=== PATIENT | female | born 1965 | race Caucasian/White ===

== ENCOUNTER → 2017-02-11 | Outpatient (CLI) | payer OTHER ==
[2017-02-11 17:57] LABS: Basophils # (A) 0.1 k/uL (0-0.2); Basophils % (A) 1 %; CH 32.1; CHCM 32.4; Eosinophils # (A) 0.2 k/uL (0-0.7); Eosinophils % (A) 3 %; HCT 40.6 % (34.0-46.0); HDW 2.26; HGB 13.3 gm/dL (11.4-16.0); Luc # (Auto) 0.12; Luc % (Auto) 2; Lymphocytes # (A) 1.8 k/uL (1.0-4.8); Lymphocytes % (A) 28 %; MCH 32.5 pg (25.0-35.0); MCHC 32.6 g/dL (31.0-37.0); MCV 99.5 fL (80.0-100.0); Mean Platelet Volume 9.5; Monocytes # (A) 0.4 k/uL (0-1.0); Monocytes % (A) 6 %; Neutrophils % (A) 61 %; RBC 4.08 m/uL (3.80-5.40); RDW 13.5 % (11.5-15.5); WBC 6.6 k/uL (3.8-10.6); WBC (Perox) 6.51
== END | disposition home or self-care (01) ==
LOC: LABPAT 17:17
PROVIDERS: ATTEND Obstetrics & Gynecology
DX: Z01.818 Encounter for other preprocedural examination (principal)
CPT/HCPCS: 85025

== ENCOUNTER 2017-02-16 10:59 | Day surgery (SDC) | payer OTHER ==
[2017-02-12 10:03] VITALS: BMI 21.9
[~2017-02-16 10:59] MED LIST: DEXAMETHASONE SOD PHOSPHATE 10 MG/ML 1 ML VIAL IV ONE; HYDROmorphone 1 MG/ML 1 ML SYRINGE IVP PRN; LACTATED RINGERS 1,000 ML IV SCH; MIDAZOLAM 2 MG/2 ML VIAL IV PRN; ONDANSETRON 4 MG/2 ML VIAL IVP ONE; Pre Op ABX Message 1 EACH MISC MISCELLANE ONE
--- NOTE | 2017-02-16 11:23 | P.HPOB ---
History of Present Illness H&P Date: 02/16/17 Chief Complaint: vaginal bleeding 51 year old presents for D&C hysteroscopy and endometrial ablation with NovaSure. She has been having intermittent heavy cycles and most recently has been constantly bleeding for the last month. Review of Systems All systems: negative Constitutional: Denies chills, Denies fever Eyes: denies blurred vision, denies pain Ears, nose, mouth and throat: Denies headache, Denies sore throat Cardiovascular: Denies chest pain, Denies shortness of breath Respiratory: Denies cough Gastrointestinal: Denies abdominal pain, Denies diarrhea, Denies nausea, Denies vomiting Genitourinary: Denies dysuria, Denies hematuria Musculoskeletal: Denies myalgias Integumentary: Denies pruritus, Denies rash Neurological: Denies numbness, Denies weakness Psychiatric: Denies anxiety, Denies depression Endocrine: Denies fatigue, Denies weight change Past Medical History Past Medical History: Mitral Valve Prolapse (MVP) Additional Past Medical History / Comment(s): irregular periods, hx of htn, no longer on medication. states watching mitral valve prolapse History of Any Multi-Drug Resistant Organisms: None Reported Past Surgical History: Cholecystectomy Additional Past Surgical History / Comment(s): bilateral laser eye surgery for glaucoma Past Anesthesia/Blood Transfusion Reactions: Motion Sickness Additional Past Anesthesia/Blood Transfusion Reaction / Comment(s): scopolamine patch on more than 24 hrs, and eyes became dilated Past Psychological History: No Psychological Hx Reported Smoking Status: Never smoker Past Alcohol Use History: None Reported Past Drug Use History: None Reported - Past Family History Mother Family Medical History: Deep Vein Thrombosis (DVT) Medications and Allergies Home Medications Medication Instructions Recorded Confirmed Type Ibuprofen [Motrin] 200 - 400 mg PO Q6H PRN 07/28/16 02/16/17 History Tumeric 1 tab PO DAILY 07/28/16 02/16/17 History Medroxyprogesterone Acetate 20 mg PO QAM 02/12/17 02/16/17 History [Provera] Allergies Allergy/AdvReac Type Severity Reaction Status Date / Time No Known Allergies Allergy Verified 02/12/17 09:56 Exam Osteopathic Statement: *. No significant issues noted on an osteopathic structural exam other than those noted in the History and Physical/Consult. - Vital Signs Vital signs: Vital Signs Temp Pulse Resp BP Pulse Ox 02/16/17 11:18 97.6 F 91 16 143/92 100 Heart: RRR Lungs: CTAB Abdomen: sfot, nontender Extremeties: neg billie's Assessment and Plan (1) Menorrhagia Status: Acute Plan: 1. D&C hysteroscopy and endometrial ablation with NovaSure.
[2017-02-16] MEDS ORDERED: MIDAZOLAM 2 MG/2 ML VIAL ONE (12:02)
[2017-02-16] MEDS ORDERED: LIDOCAINE 1% INJ 10MG/ML (20 ML MDV) ONE (12:02)
[2017-02-16] MEDS ORDERED: KETOROLAC 30 MG/ML 1 ML VIAL ONE (12:02)
[2017-02-16] MEDS ORDERED: PROPOFOL 10 MG/ML 20 ML VIAL IV ONE (12:02)
[2017-02-16] MEDS ORDERED: fentaNYL (PF) 50 MCG/ML 2 ML AMP ONE (12:02)
--- NOTE | 2017-02-16 12:30 | P.OP ---
Date of Procedure: 02/16/17 Preoperative Diagnosis: 1. Menorrhagia Postoperative Diagnosis: 1. Menorrhagia Procedure(s) Performed: D&C hysteroscopy, endometrial ablation with NovaSure Anesthesia: MAC Surgeon: Yessica Bull Estimated Blood Loss (ml): 10 IV fluids (ml): 150 Urine output (ml): 150 Pathology: other (Endometrial curettings) Condition: stable Disposition: PACU Operative Findings: Large amount of endometrial curettings uterine length 6.5 cm, width 5.1 cm power 180 W, time of ablation 62 seconds. Adequate ablation noted after the NovaSure Description of Procedure: Patient is taken the operating room where general anesthesia was obtained without difficulty. She was prepped and draped in normal sterile fashion dorsal lithotomy position, legs placed in the candy cane stirrups. Bladder was drained of all urine. Weighted speculum placed in the vagina and the anterior lip the cervix was grasped with serial tooth tenaculum. The uterus sounded to 11 cm and the cervix under 3.5 cm making the cavity length 7.5 cm. The cervix was dilated to #8 Hegar dilator. Hysteroscopy was then performed. Both ostia were visualized and there was a smooth contour of the uterus. Sharp curet was then gently used to obtain endometrial curettings. The NovaSure was introduced into the uterus with a cavity length of 6.5 cm, width 5.1 cm. after cavity assessment was passed, the time of ablation was 62 seconds at 180 W. Hysteroscopy was again performed and adequate ablation was noted. All instruments removed from the vagina. Patient tolerated the procedure well, sponge and instrument counts were correct 2 and she was taken to recovery in stable condition.
[2017-02-16 12:46] VITALS: TEMP 97.1
[2017-02-16 13:27] VITALS: BP 138/85; PULSE 84; RESP 18
[2017-02-16] MEDS ORDERED: ACETAMINOPHEN TAB 500 MG TAB PO ONE ×2 (13:30)
== END 2017-02-16 14:10 | disposition home or self-care (01) ==
LOC: OR 10:59
PROVIDERS: ATTEND Obstetrics & Gynecology
DX: N92.1 Excessive and frequent menstruation with irregular cycle (principal); I34.1 Nonrheumatic mitral (valve) prolapse; Z79.1 Long term (current) use of non-steroidal anti-inflammatories (NSAID); Z79.899 Other long term (current) drug therapy
CPT/HCPCS: 81025; 88305; 84132; 58563; J2250; J1100; J2405; J2001; J3010; J1885; J2704

== ENCOUNTER → 2017-04-26 | Outpatient (CLI) | payer OTHER ==
--- NOTE | 2017-04-27 13:13 | MM ---
Reason for exam: screening (asymptomatic). Last mammogram was performed 2 years ago. Physical Findings: A clinical breast exam by your physician is recommended on an annual basis and results should be correlated with mammographic findings. MG Screening Mammo w CAD Bilateral CC and MLO view(s) were taken. Prior study comparison: April 23, 2015, bilateral MG screening mammo w CAD. March 14, 2013, bilateral digital screening mammo w/CAD. There are scattered fibroglandular densities. Benign calcifications. There is no discrete abnormality. No significant changes when compared with prior studies. ASSESSMENT: Benign, BI-RAD 2 RECOMMENDATION: Routine screening mammogram of both breasts in 1 year.
== END ==
LOC: RADMAMWWP 10:06
PROVIDERS: ATTEND Obstetrics & Gynecology
DX: Z12.31 Encounter for screening mammogram for malignant neoplasm of breast (principal)

== ENCOUNTER → 2018-05-12 | Outpatient (CLI) | payer OTHER ==
--- NOTE | 2018-05-13 11:24 | MM ---
Reason for exam: screening (asymptomatic). Last mammogram was performed 1 year and 1 month ago. Physical Findings: A clinical breast exam by your physician is recommended on an annual basis and results should be correlated with mammographic findings. MG Screening Mammo w CAD Bilateral CC and MLO view(s) were taken. Prior study comparison: April 26, 2017, bilateral MG screening mammo w CAD. April 23, 2015, bilateral MG screening mammo w CAD. The breast tissue is extremely dense which could obscure a lesion on mammography. No suspicious abnormality. ASSESSMENT: Negative, BI-RAD 1 RECOMMENDATION: Routine screening mammogram of both breasts in 1 year.
== END | disposition home or self-care (01) ==
LOC: RADMAMWWP 12:49
PROVIDERS: ATTEND Obstetrics & Gynecology
DX: Z12.31 Encounter for screening mammogram for malignant neoplasm of breast (principal)
CPT/HCPCS: 77067

== ENCOUNTER → 2019-08-17 | Outpatient (CLI) | payer OTHER ==
--- NOTE | 2019-08-18 10:03 | BD ---
EXAMINATION TYPE: Axial Bone Density DATE OF EXAM: 08/17/2019 COMPARISON: NONE CLINICAL HISTORY: 53 YR OLD FEMALE....ICD-10 CODE: N95.1 POST MENOPAUSAL Height: 64.5 Weight: 143 FRAX RISK QUESTIONS: Family History (Parent hip fracture): YES, AUNT RISK FACTORS HISTORY OF: Family History of Osteoporosis: YES, HER AUNT WITH FXs Active: YES Diet low in dairy products/other sources of calcium: MAYBE A BIT LOW, NO GB Postmenopausal woman: YES, AT AGE 52 Hyperparathyroidism: YES Adrenal Insufficiency: NO MEDICATIONS: Additional Medications: NOTHING AT THIS POINT Additional History: NOTHING ADDITIONAL TO ADD EXAM MEASUREMENTS: Bone mineral densitometry was performed using the [employer] System. Bone mineral density as measured about the Lumbar spine is: ----- L1-L4(G/cm2): 1.432 T Score Values are as follows: ----- L1: 1.5 ----- L2: 1.3 ----- L3: 2.4 ----- L4: 2.9 ----- L1-L4: 2.1 Bone mineral density ........FIRST DEXA SCAN....BASELINE STUDY Bone mineral density about the R hip (g/cm2): 1.074 Bone mineral density about the L hip (g/cm2): 1.041 T Score values are as follows: -----R Neck: -0.2 -----L Neck: -0.3 -----R Total: 0.5 -----L Total: 0.3 Bone mineral density BASELINE STUDY FRAX%s: THERE IS A 4.8% CHANCE FOR A MAJOR OSTEOPOROTIC FX AND A 0.1% FOR HIP.....PROBABILITY FOR FX IN 10 YRS TIME IMPRESSION: Normal (Values between +1 and -1 indicate normal bone mass). Consider repeating this study in 5 year s or sooner if there is some new clinical indication. NOTE: T-SCORE=SD OF THE YOUNG ADULT MEAN.
--- NOTE | 2019-08-21 10:44 | MM ---
Reason for exam: screening (asymptomatic). Last mammogram was performed 1 year and 3 months ago. History: Patient is postmenopausal. Physical Findings: A clinical breast exam by your physician is recommended on an annual basis and results should be correlated with mammographic findings. MG Screening Mammo w CAD Bilateral CC and MLO view(s) were taken. Prior study comparison: May 12, 2018, bilateral MG screening mammo w CAD. April 26, 2017, bilateral MG screening mammo w CAD. The breast tissue is heterogeneously dense. This may lower the sensitivity of mammography. No significant changes when compared with prior studies. ASSESSMENT: Negative, BI-RAD 1 RECOMMENDATION: Routine screening mammogram of both breasts in 1 year.
== END | disposition home or self-care (01) ==
LOC: RADMAMWWP 15:21
PROVIDERS: ATTEND Obstetrics & Gynecology
DX: Z12.31 Encounter for screening mammogram for malignant neoplasm of breast (principal); N95.1 Menopausal and female climacteric states
CPT/HCPCS: 77067; 77080

== ENCOUNTER → 2020-03-18 | Outpatient (CLI) | payer OTHER ==
--- NOTE | 2020-03-18 11:37 | XR ---
EXAMINATION TYPE: XR knee complete RT DATE OF EXAM: 03/18/2020 CLINICAL HISTORY: Right knee pain, nontraumatic TECHNIQUE: Three views of the right knee are obtained. COMPARISON: None. FINDINGS: There is no acute fracture/dislocation evident in right knee. The tri-compartment joint s paces appear aligned with very minimal medial compartment joint space narrowing and very small superi or patellar pole osteophyte. The overlying soft tissue appears unremarkable. IMPRESSION: There is no acute fracture or dislocation in the right knee. Minimal bicompartmental art hropathy.
== END | disposition home or self-care (01) ==
LOC: RADXRMAIN 11:11
PROVIDERS: ATTEND Family Medicine
DX: M12.861 Other specific arthropathies, not elsewhere classified, right knee (principal); M21.161 Varus deformity, not elsewhere classified, right knee

== ENCOUNTER → 2021-07-04 | Outpatient (CLI) | payer OTHER ==
--- NOTE | 2021-07-04 13:15 | MR ---
EXAMINATION TYPE: MR knee RT wo con DATE OF EXAM: 07/04/2021 COMPARISON: None HISTORY: Right knee effusion, pain x 1 year. TECHNIQUE: Multiplanar, multisequence imaging of the right knee is performed without IV contrast. FINDINGS: MEDIAL MENISCUS: Anterior and posterior horns are intact without tear. LATERAL MENISCUS: Anterior and posterior horns are intact without tear. CRUCIATE LIGAMENTS: The anterior and posterior cruciate ligaments are intact and unremarkable. COLLATERAL LIGAMENTS: The medial collateral ligament and lateral collateral ligament complex are inta ct and unremarkable. EXTENSOR MECHANISM: Visualized quadriceps and patellar tendons are intact. EFFUSION: No significant suprapatellar joint effusion. POPLITEAL CYST: No popliteal/bassett cyst. TRICOMPARTMENT SPACES: Mild narrowing medial tibiofemoral joint space and patellofemoral joint space. CARTILAGE: Intact BONE MARROW SIGNAL: No focal abnormal marrow signal is appreciated. OTHER: Extra-articular multi septate cystic structure noted adjacent to the iliotibial band measurin g approximately 3.6 x 2.5 cm with posterior extension and additional component measuring 2.4 x 1.3 cm . IMPRESSION: Extra-articular multi septate cystic structure noted adjacent to the iliotibial band measuring approx imately 3.6 x 2.5 cm with posterior extension and additional component measuring 2.4 x 1.3 cm.
== END | disposition home or self-care (01) ==
LOC: RADMRIMAIN 12:00
PROVIDERS: ATTEND Orthopaedic Surgery Sports Medicine
DX: M85.661 Other cyst of bone, right lower leg (principal)

== ENCOUNTER → 2021-11-28 | Outpatient (CLI) | payer OTHER ==
[2021-11-28 11:19] LABS: ALT 21 U/L (8-44); AST 20 U/L (13-35); Chol/HDL Ratio 3.69 Ratio; LDL Cholesterol,Calculated 78.8 mg/dL (0.0-131.0)
== END | disposition home or self-care (01) ==
LOC: LABWHC1 08:16
PROVIDERS: ATTEND Internal Medicine Interventional Cardiology
DX: E78.2 Mixed hyperlipidemia (principal)
CPT/HCPCS: 36415; 80061; 84450; 84460

== ENCOUNTER → 2023-06-18 | Outpatient (CLI) | payer OTHER ==
--- NOTE | 2023-06-21 07:47 | MM ---
Reason for Exam: Screening (asymptomatic). Last mammogram was performed 3 year(s) and 10 month(s) ago. Patient History: Menarche at age 13. First Full-Term at age 22. Postmenopausal. Risk Values: Elda 5 year model risk: 1.1%. NCI Lifetime model risk: 7.1%. Prior Study Comparison: 04/26/2017 Bilateral Screening Mammogram, [facility]. 05/12/2018 Bilateral Screening Mammogram, [facility]. 08/17/2019 Bilateral Screening Mammogram, [facility]. Tissue Density: The breast tissue is heterogeneously dense. This may lower the sensitivity of mammography. Findings: Analyzed By CAD. There is no suspicious group of microcalcifications or new suspicious mass in either breast. Overall Assessment: Benign, BI-RAD 2 Management: Screening Mammogram of both breasts in 1 year. . Patient should continue monthly self-breast exams. A clinical breast exam by your physician is recommended on an annual basis. This exam should not preclude additional follow-up of suspicious palpable abnormalities. Note on Elda scores and lifetime risk: 1. A Elda score greater than 3% is considered moderate risk. If this is the case, consider specialist referral to assess eligibility for a risk reducing agent. 2. If overall lifetime risk for the development of breast cancer is 20% or higher, the patient may qualify for future screening with alternating mammogram and breast MRI. Electronically signed and approved by: Raffy Gomes M.D. Radiologis
== END | disposition home or self-care (01) ==
LOC: RADMAMWWP 15:18
PROVIDERS: ATTEND Obstetrics & Gynecology
DX: Z12.31 Encounter for screening mammogram for malignant neoplasm of breast (principal); Z78.0 Asymptomatic menopausal state
CPT/HCPCS: 77067